=== PATIENT | male | born 1955 | race African-American/Black ===

== ENCOUNTER 2017-04-22 17:01 | Emergency (ER) | payer OTHER ==
[~2017-04-22] VITALS: Ht 185.4 cm; Wt 131.8 kg
[2017-04-22 18:43] LABS: HEMATOCRIT 48.4 % (38.0-50.0); MCH 27.7 PG (29.0-34.0); MCHC 32.4 G/DL (30.0-36.0); MCV 85.4 FL (86-99); MEAN PLAT.VOLUME 11.6 uM^3 (9.0-12.4); PLATELET COUNT 166 K/uL (156-360); RBC DIS.WIDTH-SD 40.3 % (39-53); RED BLOOD COUNT 5.67 M/uL (4.00-5.50); WHITE BLOOD COUNT 7.6 K/uL (4.1-10.2)
[2017-04-22 18:53] LABS: INTER. NORMALIZED RATIO 1.1; PROTHROMBIN TIME 11.9 SEC (10.2-12.9)
[2017-04-22 18:55] LABS: CHLORIDE 106 mEq/L (99-109); POTASSIUM 3.8 mEq/L (3.7-5.4); PTT 30.9 SEC (25-37); SODIUM 141 mEq/L (136-147)
[2017-04-22 18:57] LABS: GLUCOSE 92 mg/dL (70-99)
[2017-04-22 18:58] LABS: ANION GAP 11 MEQ/L (2-14)
[2017-04-22 18:59] LABS: TOTAL BILIRUBIN 1.2 mg/dL (0.0-1.0)
[2017-04-22 19:00] LABS: ALKALINE PHOSPHATASE 108 IU/L (3-129)
[2017-04-22 19:01] LABS: GFR ESTIMATE (CALCULATED) > 59 mL/min/
[2017-04-22 19:02] LABS: UREA NITROGEN (BUN) 9 mg/dL (9-23)
[2017-04-22 19:23] VITALS: BP 157/78
[2017-04-22] MEDS ORDERED: CLARITIN,ALAVAR10 MG PO (19:25)
[2017-04-22] MEDS ORDERED: FISH OIL 1,0001 EAC7 PO (19:26)
[2017-04-22] MEDS ORDERED: HYZAAR 50-121 TABLET PO (19:26)
== END 2017-04-22 19:27 ==
LOC: EME 17:01
PROVIDERS: Emergency Medicine
DX: K75.9 Inflammatory liver disease, unspecified (principal)
CPT/HCPCS: 80053; 85027; 85610; 85730; 99281; 99284